=== PATIENT | female | born 2000 ===

== ENCOUNTER 2025-02-04 15:14 | Emergency (ER) | payer SELFPAY ==
--- NOTE | 2025-02-04 15:36 | ERPHSYRPT ---
- History of Present Illness Time Seen by Provider: 02/04/25 15:33 Source: patient Exam Limitations: no limitations Physician History: 24-year-old female history of skin MRSA presents to our ED for similar symptoms. Patient has a infected lesion at her left mandaen area and in her right posterior ear area. No trauma no fever no nausea no vomiting no diaphoresis. No systemic manifestations. Patient states her symptoms are similar. Patient is visiting from [place]. Patient states she is otherwise healthy. Patient voices no other complaints or concerns at this time. Portions of this note were created with voice recognition technology. There may be grammatical, spelling, punctuation or sound alike errors Timing/Duration: today Severity: moderate Modifying Factors: Improves With: nothing Associated Symptoms: denies symptoms Allergies/Adverse Reactions: cephalexin Allergy (Verified 02/04/25 15:22) piperacillin [From Zosyn] Allergy (Verified 02/04/25 15:22) sulfamethoxazole [From Bactrim] Allergy (Verified 02/04/25 15:22) tazobactam [From Zosyn] Allergy (Verified 02/04/25 15:22) trimethoprim [From Bactrim] Allergy (Verified 02/04/25 15:22) - Review of Systems Constitutional: No Symptoms, No Fever, No Chills Eyes: No Symptoms Ears, Nose, & Throat: No Symptoms Respiratory: No Symptoms, No Cough, No Dyspnea Cardiac: No Symptoms, No Chest Pain, No Edema, No Syncope Abdominal/Gastrointestinal: No Symptoms, No Abdominal Pain, No Nausea, No Vomiting, No Diarrhea Genitourinary Symptoms: No Symptoms, No Dysuria Musculoskeletal: No Symptoms, No Back Pain, No Neck Pain Skin: No Symptoms, No Rash Neurological: No Symptoms, No Dizziness, No Focal Weakness, No Sensory Changes Psychological: No Symptoms Endocrine: No Symptoms Hematologic/Lymphatic: No Symptoms Immunological/Allergic: No Symptoms All Other Systems: Reviewed and Negative - Nursing Vital Signs Nursing Vital Signs: Initial Vital Signs Temperature 97.5 F 02/04/25 15:24 Pulse Rate 98 H 02/04/25 15:24 Respiratory Rate 18 02/04/25 15:24 Blood Pressure 141/89 02/04/25 15:24 O2 Sat by Pulse Oximetry 99 02/04/25 15:24 Pain Scale Pain Intensity 8 - Physical Exam General Appearance: no apparent distress, alert Eye Exam: PERRL/EOMI, eyes nml inspection Ears, Nose, Throat Exam: normal ENT inspection, moist mucous membranes Neck Exam: normal inspection, full range of motion Respiratory Exam: normal breath sounds, airway intact, No respiratory distress Cardiovascular Exam: regular rate/rhythm, normal peripheral pulses Gastrointestinal/Abdomen Exam: soft, normal bowel sounds, No tenderness, No mass Back Exam: normal inspection, normal range of motion, No CVA tenderness, No vertebral tenderness Extremity Exam: normal inspection, normal range of motion, pelvis stable Neurologic Exam: alert, oriented x 3, cooperative, normal mood/affect, sensation nml, No motor deficits Skin Exam: normal color, warm, dry, No rash Lymphatic Exam: No adenopathy SpO2 Interpretation: normal SpO2: 99 O2 Delivery: Room Air - Course Nursing assessment & vital signs reviewed: Yes Ordered Tests: Medication Summary Discontinued Medications Generic Name Dose Route Start Last Admin Trade Name Freq PRN Reason Stop Dose Admin Clindamycin HCl 300 mg 02/04/25 15:26 02/04/25 15:39 Clindamycin Hcl 150 Mg Capsule PO 02/04/25 15:27 300 mg STAT ONE Administration Clindamycin HCl Confirm 02/04/25 15:39 Clindamycin Hcl 150 Mg Capsule Administered 02/04/25 15:40 Dose 300 mg .ROUTE .STK-MED ONE Ketorolac Tromethamine 30 mg 02/04/25 15:31 02/04/25 15:40 Ketorolac Tromethamine 30 Mg/Ml Inj IM 02/04/25 15:32 30 mg STAT ONE Administration Ketorolac Tromethamine Confirm 02/04/25 15:38 Ketorolac Tromethamine 30 Mg/Ml Inj Administered 02/04/25 15:39 Dose 30 mg .ROUTE .STK-MED ONE - Progress Progress: improved Progress Note: 24-year-old female presents to emergency department for evaluation of skin infection. Patient has history of MRSA. Patient believes she has a recurrence of her MRSA. Physical exam reveals 2 lesions on her left mandaen and by her right ear. Patient received an oral dose of clindamycin in our ED. Patient also received an IM dose of Toradol. A prescription for the same was forwarded to patient's pharmacy. Patient understand that she has 3 more doses to be taken in the next 24 hours. Patient is visiting from [place]. She does not have a primary care doctor. Patient was advised to follow-up with Dr. Solano. Patient otherwise feels well. She voices no other complaints or concerns at this time. Portions of this note were created with voice recognition technology. There may be grammatical, spelling, punctuation or sound alike errors Complexity of problem addressed is moderate acute complicated. No critical care time. Complexity of data reviewed and analyzed as none. No specialized testing ordered. Diagnosis made based on history and physical exam. Risk of complication and or risk of morbidity/mortality of patient management is moderate. A prescription for clindamycin and Toradol forwarded to patient's pharmacy. Vital stable. Time spent to discharge patient is approximately 15 minutes. Plan of care established for shared decision making. No social d eterminants of health present to impede follow-up. Portions of this note were created with voice recognition technology. There may be grammatical, spelling, punctuation or sound alike errors 02/04/25 15:46 Counseled pt/family regarding: diagnosis, need for follow-up - Departure Departure Disposition: Home Clinical Impression: Infection of skin due to methicillin resistant Staphylococcus aureus (MRSA) Condition: Stable Critical Care Time: No Referrals: BELLE SOLANO MD [ACTIVE STAFF, [facility]] - Follow up/PCP as directed Additional Instructions: Discharge/Care Plan AIMEE PATEL was seen on 02/04/25 in the Emergency Room. The patient was counseled regarding Diagnosis,Lab results, Imaging studies, need for follow up and when to return to the Emergency Room. Prescriptions given: Discharge Note I have spoken with the patient and/or caregivers. I have explained the patient's condition, diagnosis and treatment plan based on the information available to me at this time. I have answered the patient's and/or caregiver's questions and addressed any concerns. The patient and/or caregivers have as good understanding of the patient's diagnosis, condition and treatment plan as can be expected at this point. The vital signs have been stable. The patient's condition is stable and appropriate for discharge from the emergency department. The patient will pursue further outpatient evaluation with the primary care physician or other designated or consulting physician as outlined in the discharge instructions. The patient and/or caregivers are agreeable to this plan of care and follow-up instructions have been explained in detail. The patient and/or caregivers have received these instruction. The patient/and or caregivers are aware that any significant change in condition or worsening of symptoms should prompt an immediate return to this or the closest emergency department or call 911. Prescriptions: RX: Clindamycin HCl 150 mg [Cleocin 150 mg Capsule] 2 cap PO QID 7 Days #56 cap Ketorolac Trometh 10 mg Tab [TORAdol 10 MG TABLET] 10 mg PO TID 5 Days #15 tablet
[2025-02-04 15:38] VITALS: TEMP 97.5; O2SAT 99
[2025-02-04] MEDS ORDERED: TORAdol 30 mg Injection ONE (15:38)
[2025-02-04] MEDS ORDERED: CLEOCIN 150 MG CAPSULE ONE (15:39)
[2025-02-04] MEDS: CLEOCIN 150 MG CAPSULE PO ONE (15:39)
[2025-02-04] MEDS: TORAdol 30 mg Injection IM ONE (15:40)
[2025-02-04 16:01] VITALS: BP 144/97; PULSE 81; RESP 16
== END 2025-02-04 16:00 | disposition home or self-care (01) ==
LOC: ED 15:14
DX: L08.9 Local infection of the skin and subcutaneous tissue, unspecified (principal); B95.62 Methicillin resistant Staphylococcus aureus infection as the cause of diseases classified elsewhere; Z79.899 Other long term (current) drug therapy
CPT/HCPCS: 96372; 99283; J1885; A9270-GY

== ENCOUNTER 2025-02-12 15:00 | Emergency (ER) | payer SELFPAY ==
--- NOTE | 2025-02-12 16:33 | ERPHSYRPT ---
- History of Present Illness Time Seen by Provider: 02/12/25 16:33 Source: patient, family Exam Limitations: no limitations Physician History: This is a 24-year-old white female patient who arrives to the emergency department by private vehicle accompanied by family/friend with with known MRSA of the skin left forehead and behind the right ear. She has had this type of infection before and [place] and will be here for several weeks. She only had prescriptions for 1 week of clindamycin both orally and topically. She is out of those medications and still has the skin lesions present. She is here for medication refill. The clindamycin works well for her. However, she has to take it for several weeks. Patient is allergic to penicillin, cephalosporins and sulfa drugs Timing/Duration: today Quality: burning Severity: mild Location: scalp, face Possible Causes: other Associated Symptoms: denies symptoms Allergies/Adverse Reactions: cephalexin Allergy (Verified 02/12/25 16:37) piperacillin [From Zosyn] Allergy (Verified 02/12/25 16:37) sulfamethoxazole [From Bactrim] Allergy (Verified 02/12/25 16:37) tazobactam [From Zosyn] Allergy (Verified 02/12/25 16:37) trimethoprim [From Bactrim] Allergy (Verified 02/12/25 16:37) Hx Tetanus, Diphtheria Vaccination/Date Given: Yes Hx Influenza Vaccination/Date Given: Yes Hx Pneumococcal Vaccination/Date Given: No Travel Risk - International Travel Have you traveled outside of the country in past 3 weeks: No - Emerging Infectious Disease Are you exhibiting symptoms associated with any current EIDs: No - Review of Systems Constitutional: No Symptoms Eyes: No Symptoms Ears, Nose, & Throat: Other (Versus skin lesion behind right ear) Respiratory: No Symptoms Cardiac: No Symptoms Abdominal/Gastrointestinal: No Symptoms Genitourinary Symptoms: No Symptoms Musculoskeletal: No Symptoms Skin: Other (MRSA skin lesions behind the right ear and left forehead) Neurological: No Symptoms Psychological: No Symptoms Endocrine: No Symptoms Hematologic/Lymphatic: No Symptoms Immunological/Allergic: No Symptoms All Other Systems: Reviewed and Negative - Past Medical History Pertinent Past Medical History: Yes Neurological History: No Pertinent History ENT History: No Pertinent History Cardiac History: Other Respiratory History: Other Endocrine Medical History: Diabetes Type I Musculoskeletal History: No Pertinent History GI Medical History: Other History: No Pertinent History Psycho-Social History: Anxiety Female Reproductive Disorders: No Pertinent History 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, liver failure, multiple organ failure, mumur - Past Surgical History Past Surgical History: Yes Neuro Surgical History: No Pertinent History Cardiac: Cardiac Stent Respiratory: Chest Surgery Gastrointestinal: No Pertinent History Genitourinary: No Pertinent History Musculoskeletal: No Pertinent History Other Surgical History: cardiac ablasion - Social History Smoking Status: Never smoker Exposure to second hand smoke: No Drug Use: marijuana - Social Determinants of Health Will the patient participate in the screening: Yes Do you worry about a steady place to live?: No In the past 12 months,have you had to go without utilities?: No Transportation Issues: No Has anyone in your support network made you feel unsafe?: No Have you or anyone in your house had to go w/o enough food: No - Nursing Vital Signs Nursing Vital Signs: Initial Vital Signs Temperature 98.8 F 02/12/25 16:29 Pulse Rate 69 02/12/25 16:29 Blood Pressure 136/92 02/12/25 16:29 O2 Sat by Pulse Oximetry 99 02/12/25 16:29 Pain Scale Pain Intensity 7 - Physical Exam General Appearance: no apparent distress, alert Eye Exam: PERRL/EOMI, eyes nml inspection Ears, Nose, Throat Exam: normal ENT inspection, moist mucous membranes Neck Exam: normal inspection, non-tender, supple, full range of motion Respiratory Exam: No chest tenderness, No respiratory distress Gastrointestinal/Abdomen Exam: No tenderness Pelvic Exam: not done Rectal Exam: not done Back Exam: normal inspection, normal range of motion, No CVA tenderness, No vertebral tenderness Extremity Exam: normal inspection, normal range of motion, pelvis stable Neurologic Exam: alert, oriented x 3, cooperative, hims clerk II-XII nml as tested, normal mood/affect, nml cerebellar function, nml station & gait, sensation nml Skin Exam: other (MRSA lesion behind the right ear and anterior left forehead. No periwound/lesion cellulitis) Lymphatic Exam: No adenopathy SpO2 Interpretation: normal O2 Delivery: Room Air - Course Nursing assessment & vital signs reviewed: Yes Ordered Tests: Medication Summary Discontinued Medications Generic Name Dose Route Start Last Admin Trade Name Freq PRN Reason Stop Dose Admin Clindamycin HCl 300 mg 02/12/25 17:37 Clindamycin Hcl 150 Mg Capsule PO 02/12/25 17:38 STAT ONE - Progress Progress: unchanged Progress Note: 02/12/25 17:43 My medical decision making and the assignment of low complexity of this patient's medical issue today is based on review of the patient's past medical history, review the patient's medication list, reviewed patient drug allergy list, history present illness and physical findings on examination. No laboratory radiographic studies are necessary in this patient's workup. Differential diagnosis includes but is not limited to medication refill, MRSA, skin infection Counseled pt/family regarding: diagnosis, need for follow-up Medical Desision Making - Independent Historian Additional History obtained from: Relative/friend - Diagnostic Testing Diagnostic test were ordered, analyzed, and reviewed by me: No - Risk of complications The pt has a mod risk of morbidity or mortality based on: Need for prescription drug management - Departure Departure Disposition: Home Clinical Impression: Medication refill, MRSA (methicillin resistant Staphylococcus aureus) Condition: Stable Critical Care Time: No Referrals: Provider,Unknown [Primary Care Provider, UNKNOWN] - Follow up/PCP as directed Additional Instructions: Keep your skin infection sites clean daily with soap and water. Cover the sites. Avoid exposure to other individuals. Use the topical clindamycin and take the oral clindamycin as prescribed. Call your primary care provider tomorrow, 02/13/2025, to make arrangements for follow-up appointment to be seen in the next 7 days. Prescriptions: Clindamycin HCl 150 mg [Cleocin 150 mg Capsule] 2 cap PO QID #56 cap Clindamycin Phosphate [Clindagel] 75 ml TP BID #1 unit
[2025-02-12 16:37] VITALS: TEMP 98.8
[2025-02-12] MEDS ORDERED: CLEOCIN 150 MG CAPSULE ONE (17:40)
[2025-02-12] MEDS: CLEOCIN 150 MG CAPSULE PO ONE (17:41)
[2025-02-12 17:45] VITALS: PULSE 77; RESP 18; O2SAT 100
[2025-02-12 17:50] VITALS: BP 148/110
== END 2025-02-12 18:02 | disposition home or self-care (01) ==
LOC: ED 15:00
DX: Z76.0 Encounter for issue of repeat prescription (principal); A49.02 Methicillin resistant Staphylococcus aureus infection, unspecified site; Z79.899 Other long term (current) drug therapy
CPT/HCPCS: 99281; 99283; A9270-GY